=== PATIENT | male | born 1955 | race Caucasian/White ===

== ENCOUNTER 2022-11-16 08:56 | Outpatient (RCR) | payer OTHER, MEDICARE | END 2022-11-18 | disposition home or self-care (01) | LOC: CR 08:56 | PROVIDERS: ATTEND Internal Medicine Cardiovascular Disease | DX: Z29.8 Encounter for other specified prophylactic measures (principal) | CPT/HCPCS: 93798 ==

== ENCOUNTER 2022-11-21 09:31 | Outpatient (RCR) | payer OTHER, MEDICARE | END 2022-12-18 | disposition home or self-care (01) | LOC: CR 09:31 | PROVIDERS: ATTEND Internal Medicine Cardiovascular Disease | DX: Z29.8 Encounter for other specified prophylactic measures (principal) | CPT/HCPCS: 93798 ==

== ENCOUNTER 2022-12-19 07:38 | Outpatient (RCR) | payer OTHER, MEDICARE | END 2023-01-18 | disposition home or self-care (01) | LOC: CR 07:38 | PROVIDERS: ATTEND Internal Medicine Cardiovascular Disease | DX: Z29.8 Encounter for other specified prophylactic measures (principal); Z95.5 Presence of coronary angioplasty implant and graft ==